=== PATIENT | male | born 1960 | race Caucasian/White ===

== ENCOUNTER 2016-12-21 13:25 | Emergency (ER) | payer MEDICAID, OTHER ==
[2016-12-21 13:47] VITALS: TEMP 98.4; BMI 36.7
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
[2016-12-21] MEDS ORDERED: ONDANSETRON HCL 4 MG/2 ML VIAL IV ONE (14:50)
[2016-12-21] MEDS ORDERED: HYDROmorphone 1 MG INJECTION IV ONE ×2 (14:50→16:50)
[2016-12-21] MEDS ORDERED: NS 1,000 ML IV ONE ×2 (14:50→16:08)
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
[2016-12-21] MEDS ORDERED: Pharmacy Review for Metformin - IV Contrast Given SCH (15:00)
[2016-12-21 15:24] LABS: MPV 9.7 fL (7.4-10.4)
[2016-12-21 15:28] LABS: BLOOD UREA NITROGEN 10 MG/DL (9-20); CALCIUM 9.3 MG/DL (8.4-10.2); CALCULATED OSMOLALITY 280 MOs/Kg (270-290); CHLORIDE 97 mEq/L (98-107); GLUCOSE 436 mg/dL (70-99); SODIUM LEVEL 136 mEq/L (137-146); TOTAL PROTEIN 8.6 G/DL (6.3-8.2)
[2016-12-21 16:03] LABS: LEUKOCYTES/URINE NEG (NEGATIVE); NITRITE/URINE NEG (NEGATIVE); URINE OCCULT BLOOD 2+ (NEG/TRACE); WBC/URINE 0-2 (0-2)
[2016-12-21 16:03] LABS: SEG NEUTROPHIL 87 % (45-76); TOTAL CELL COUNT 100
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
[2016-12-21] MEDS ORDERED: REGULAR INSULIN 100 UNITS/ML - 3 ML VIAL IV ONE (17:00)
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
[2016-12-21] MEDS ORDERED: OXYCODONE HCL 5 MG TABLET PO ONE (18:38)
[2016-12-21 18:46] VITALS: BP 157/77; PULSE 92
== END 2016-12-21 18:48 | disposition home or self-care (01) ==
LOC: ED 13:25 → EDMC 18:48
DX: F11.23 Opioid dependence with withdrawal (principal); T40.2X5A Adverse effect of other opioids, initial encounter; S16.1XXA Strain of muscle, fascia and tendon at neck level, initial encounter; X58.XXXA Exposure to other specified factors, initial encounter; Y93.9 Activity, unspecified
CPT/HCPCS: 36415; 70498; 71020; 72050; 80053; 81001; 85007; 85027; 96361; 96374; 96375; 96376; 99284; A9698; J1170; J2405; J3490

== ENCOUNTER 2016-12-24 02:22 | Emergency (ER) | payer MEDICAID ==
[2016-12-24 02:22] VITALS: BMI 36.7
[2016-12-24 02:35] VITALS: TEMP 98.4
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
[2016-12-24] MEDS ORDERED: Pharmacy Review for Metformin - IV Contrast Given SCH (03:00)
[2016-12-24 03:11] LABS: AUTOMATED BASOPHIL 0.3 % (0-2); AUTOMATED EOSINOPHIL 0.7 % (0-5); AUTOMATED LYMPH 24.5 % (17-44); AUTOMATED MONOCYTE 6.5 % (3-10); MPV 8.3 fL (7.4-10.4)
[2016-12-24 03:24] LABS: BLOOD UREA NITROGEN 6 MG/DL (9-20); CALC CORRECTED 8.2 MG/DL (8.4-10.2); CALCIUM 7.8 MG/DL (8.4-10.2); CALCULATED OSMOLALITY 266 MOs/Kg (270-290); CHLORIDE 92 mEq/L (98-107); GLUCOSE 322 mg/dL (70-99); SODIUM LEVEL 133 mEq/L (137-146); TOTAL PROTEIN 7.6 G/DL (6.3-8.2)
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
[2016-12-24] MEDS ORDERED: Vancomycin HCl 0 MG in D5W 500 ML IV ONE (04:41)
[2016-12-24 05:17] VITALS: PULSE 62
[2016-12-24 06:43] VITALS: BP 124/64
== END 2016-12-24 07:35 ==
LOC: ED 02:22
DX: L02.413 Cutaneous abscess of right upper limb (principal); S10.93XA Contusion of unspecified part of neck, initial encounter; W50.1XXA Accidental kick by another person, initial encounter; Y93.9 Activity, unspecified
CPT/HCPCS: 10060; 36415; 70491; 80053; 85025; 87040; 87070; 87075; 87077; 96365; 99283; A9698; J3370; J7060